=== PATIENT | male | born 2000 | race Caucasian/White ===

== ENCOUNTER 2021-06-22 17:30 | Outpatient (RCR) | payer OTHER, SELFPAY ==
--- NOTE | 2021-04-13 12:39 | HP.OTEVAL ---
Patient's Visit Information KYRIE PENALOZA is a 20 year old M, referred to Occupational Therapy by FACUNDO REECE, with a diagnosis of Extensor tendon Injury s/p repair. Date of Evaluation: 04/13/21 Occupational Therapist: Claire Kumar - Subjective Pt presents w/ extensor tendon injury s/p sx; Pt had sx 03/18/21 at [facility]. The accident happened on 03/13/21 where he was at work and the granite countertop that he was carrying snapped and fell at an angle on his forearm/hand. Pt reports that index finger and thumb were not involved with injury. Pt presents with a splint and has been doing exercises of DIP flexion and extension holds and continues to wear the splint at all times. Pt has follow up appt w/ surgeon on 04/23; - ADLs Dressing: Pants, Socks, Shoes Fasteners: Buttons, Zippers Comments: uses left hand Kitchen: Chop with knife, Open jars, Open bottle caps, Lift gallon of milk, Pour from pitcher Comments: Pt has been cleared to use thumb and index finger; - Pain R wrist 2 Pain Intensity Range: 10 - Objective sutures recently taken out; scar is pink with healing as expected; swelling present at wrist and MCP jointss - ROM Wrist: Flex: R 10 Ext: 35 ROM Comments: PIP/DIP AROM of D1-D5 WFL. Extensor lag present- pt states trying to complete extension holds w/ difficulty- difficulty getting accurate measurement d/t swelling - Strength Lateral Pinch: R NT Tripod Pinch: R NT Tip-to-Tip Pinch: R 0 L20 - Edema Other: Proximal MCP R 24.5cm L 23cm - Sensation Sensation Comments: Pt states having sensation (different than L hand) in Digits 3-5 on R hand - Quick DASH-Disab of Arm,Shoulder& Hand Quick DASH Score: 59.0900 - Goals Goal:100% adherence to protocol: Yes Goal:Daily scar massage when approriate: Yes Goal:ROM equal to unaffected hand: Yes Goal:Coach Operator/Pinch strength at least 75% of unaffected hand: Yes Goal:No pain with affected hand use: Yes Goal:Full use of affected hand in daily activities including: Yes Goal:Decrease scar hypersensitivity: Yes - Rehabilitation General Assessment: Pt presents to initial OT evaluation s/p extensor tendon sx after injury at work; Pt is right hand dominant and presents w/ functional limitations, deficits w/ AROM, strength, edema, sensitivity and pain. The deficits hinder his ability to be independent with ADLs/IADLs. Pt would benefit from cont. therapy services in order to follow extensor tendon protocol, progress patient as ordered/tolerable for recovery in order to return to work and independence with daily living tasks. Rehabilitation Potential: Excellent - Anticipated Interventions Early Active Motion, A/AAROM/PROM, Edema Control, Scar Care, Massage, Desensitization, Sensory Retraining, Modalities, Orthoses, Joint Protection/Energy Conservation, Fine Motor Coord/Ender, Sensory Stimulation, ADL Training, Manual Lymph Drainage, Education re Skin Care and Precautions, Education re Self Massage Techniques, Home Program - Visit Plan Frequency: 2x /Week Duration: 3 Months General Plan: Pt would benefit from cont. therapy services 2x/week for 3 months in order to address skills deficits previously listed in order to return/regain normal function. TEXT: Thank you for the opportunity to evaluate your patient. For Medicare and Medicare HMO plans, please review the plan of care and approve it. It will need to be FAXED BACK to us at [phone] for Medicare purposes. Please let me know if there are questions or concerns regarding this plan of care. Physician Signature: Date:
--- NOTE | 2021-06-22 18:40 | HP.OTREVAL ---
FACUNDO REECE, It has been my pleasure to treat KYRIE PENALOZA over the last 16 visits for Extensor tendon Injury s/p repair. Please see the progress note below for an update on the occupational therapy plan of care! Subjective: pt states he just recently moved to [place]- about [address] to therapy- pt states work is going well- still on limited duty but able to mtg. and hopeful to return to full duty after dr. giraldo. 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 right lateral pinch 24# left 26#. right tripod pinch 14# left 18#. pt demo a functional return of supervisor framing mill and pinch strength-. right wrist ROM 65/60 left 65/60. pt demo with composite fist of right hand. pt is demo at MP LF and RF at -25* of extension-pt states at times they catch in his pocket-. pt demo with superficial wound over incision i have ed. pt on cleaning and signs and symptoms of infection- pt demo understanding. therapist ed. pt on use of kinesio tape to assist in MP ext to 0*. therapist has advised for pt to keep wearing orthosis at night to work on extensor lag of LF and RF - pt communicated understanding Plan Visits in this POC: 18 Plan: pt to return to [employer] pt hopeful to return to full duty. may need orthosis to prevent extensor lag. pt like kinesio tape to assist in MP ext of LF and RF Goals - Goals Patient Goals: Regain Mobility, Regain Strength, Decrease Pain, Return to Work, Decrease Swelling/Stiffness, Improve Fine Motor Skills, Use Hand/Wrist/Arm Normally Again, Decrease Tingling/Numbness, Increase ROM, Be More Independent in ADLS, Decrease Sensitivity, Resume Former Household Responsibilities (Cooking,Cleaning,Yard, etc.), Resume Hobbies Goal:100% adherence to protocol: Yes Goal:Daily scar massage when approriate: Yes Goal:ROM equal to unaffected hand: Yes Goal:Rounding And Backing Machine Operator/Pinch strength at least 75% of unaffected hand: Yes Goal:No pain with affected hand use: Yes Goal:Full use of affected hand in daily activities including: Yes Goal:Decrease scar hypersensitivity: Yes Anticipated Interventions Anticipated Interventions: Early Active Motion, A/AAROM/PROM, Edema Control, Scar Care, Massage, Desensitization, Sensory Retraining, Modalities, Orthoses, Joint Protection/Energy Conservation, Fine Motor Coord/Enedr, Sensory Stimulation, ADL Training, Manual Lymph Drainage, Education re Skin Care and Precautions, Education re Self Massage Techniques, Home Program Please do not hesitate to contact me at [phone] by phone or if you have questions or concerns regarding this new plan of care! Sincerely, Eliana Garner, OTR/L, CHT
--- NOTE | 2021-10-13 09:53 | HP.OTDCSUM_ITS ---
It has been my pleasure to treat KYRIE PENALOZA under orders from FACUNDO REECE, for the diagnosis of Extensor tendon Injury s/p repair for a total of 16 visit(s). Please see the following information for a summary of their discharge status. 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 right lateral pinch 24# left 26#. right tripod pinch 14# left 18#. pt demo a functional return of bedspring assembler and pinch strength-. right wrist ROM 65/60 left 65/60. pt demo with composite fist of right hand. pt is demo at MP LF and RF at -25* of extension-pt states at times they catch in his pocket-. pt demo with superficial wound over incision i have ed. pt on cleaning and signs and symptoms of infection- pt demo understanding. therapist ed. pt on use of kinesio tape to assist in MP ext to 0*. therapist has advised for pt to keep wearing orthosis at night to work on extensor lag of LF and RF - pt communicated understanding Patient Goals: Regain Mobility, Regain Strength, Decrease Pain, Return to Work, Decrease Swelling/Stiffness, Improve Fine Motor Skills, Use Hand/Wrist/Arm No rmally Again, Decrease Tingling/Numbness, Increase ROM, Be More Independent in ADLS, Decrease Sensitivity, Resume Former Household Responsibilities (Cooking,Cleaning,Yard, etc.), Resume Hobbies Goal:100% adherence to protocol: Yes Goal:Daily scar massage when approriate: Yes Goal:ROM equal to unaffected hand: Yes Goal:Commercial Attache/Pinch strength at least 75% of unaffected hand: Yes Goal:No pain with affected hand use: Yes Goal:Full use of affected hand in daily activities including: Yes Goal:Decrease scar hypersensitivity: Yes Plan: pt to return to dr. pt hopeful to return to full duty. may need orthosis to prevent extensor lag. pt like kinesio tape to assist in MP ext of LF and RF If there are questions or concerns regarding this patient's occupational therapy, please fell free to call me at [phone]. Thank you for the referral of this patient. Sincerely, Eliana Garner, OTR/L, CHT
== END 2021-06-22 19:00 | disposition home or self-care (01) ==
LOC: OT 17:30
DX: S56.5 Injury of other extensor muscle, fascia and tendon at forearm level (principal); X58.XXXD Exposure to other specified factors, subsequent encounter
CPT/HCPCS: 97110; 97140; 97165; 97530